=== PATIENT | female | born 1960 | race Caucasian/White ===

== ENCOUNTER 2024-02-23 06:18 | Day surgery (SDC) | payer OTHER ==
[~2024-02-23] VITALS: Ht 165.1 cm; Wt 95.9 kg
[~2024-02-23 06:18] MED LIST: ADULT LOW DOSE81 MG PO; CONTRAVE ER 8-1 EACH PO; DICLOFENAC SODI75 MG PO; DICYCLOMINE HCL20 MG PO; ESCITALOPRAM OX20 MG PO; IRON325 M1; MELATONIN5 M2; MELOXICAM7.5 MG PO; MIDAZOLAM HCL 5 MG/5 ML VIAL IV PRN; OMEPRAZOLE20 MG PO; PREMARIN30 GM PV; PROBIOTIC1 EAC2; TRIAMCINOLONE A15 G2 TOP; fentaNYL citrate 100 MCG/2 ML VIAL IV PRN
[2024-02-23 06:36] VITALS: BP 150/80
[2024-02-23] MEDS ORDERED: fentaNYL citrate 100 MCG/2 ML VIAL ONE (06:44)
[2024-02-23] MEDS ORDERED: MIDAZOLAM HCL 5 MG/5 ML VIAL ONE (06:44)
[2024-02-23] MEDS ORDERED: LIDOCAINE HCL 4% 50 ML BTL TOP SCH (07:00)
[2024-02-23] MEDS ORDERED: IBLOOD GLUCOSE TEST STRIP 1 EA TEST VI PRN (07:00)
[2024-02-23] MEDS ORDERED: CEFAZOLIN SODIUM 2 GM/20 ML SYR IV SCH (07:00)
[2024-02-23] MEDS ORDERED: LIDOCAINE HCL 1% 5 ML SDV INJ ONE (07:00)
[2024-02-23] MEDS ORDERED: LACTATED RINGER'S 1,000 ML IV SCH (07:00)
--- NOTE | 2024-02-23 07:24 | NUR ---
VISITED DURING SPIRITUAL CARE ROUNDS. PT APPEARED TO BE SLEEPING. DID NOT DISTURB. PROVIDED PRAYER.
--- NOTE | 2024-02-23 08:36 | NUR ---
02/23/24 0836 Vianey Barnes TO PACU, RESP EVEN UNLABORED. OCCASIONAL SNORING NOTED. FOLLOWS VERBAL DIRECTIONS
[2024-02-23 09:02] VITALS: BP 146/99
--- NOTE | 2024-02-23 12:25 | OR ---
[facility] [address] [place], [place] [address] Signed DATE OF OPERATION: 02/23/2024 SURGEON: Robert Liu MD PREOPERATIVE DIAGNOSES: 1. Episodic dysphagia and stated history of "gastric polyps.". 2. Episodic rectal bleeding, possible hemorrhoidal disease. POSTOPERATIVE DIAGNOSES: 1. Normal esophagus, stomach and duodenum. 2. Pandiverticulosis of colon. PROCEDURES: 1. Esophagogastroduodenoscopy with biopsy. 2. Total colonoscopy to cecum. ANESTHESIA: Intravenous sedation; fentanyl 200 mcg and Versed 10 mg total. INDICATION: This 63-year-old white woman is a patient DrMENDOZA Rod. She was referred for colonoscopy on the basis of "hemorrhoids and associated rectal bleeding. She additionally requested to have upper endoscopy as she was told by senior product designer she says in 2022 while in [place], [place] that she had polyps lining the stomach." She has no current symptoms of hematemesis though she does occasionally have dysphagia she says. She is having no diarrhea or constipation, but has had rectal bleeding in the recent past. She has no family history of colon cancer. Her last colonoscopy was in her 40s, more than 20 years ago. She is admitted at this time to undergo upper endoscopy concurrent to colonoscopy. She understands the risk of bleeding, infection, and perforation. FINDINGS: Upper endoscopy was entirely normal. The esophagus, stomach and duodenum were normal. The flap valve was good. There was no esophagitis. No Metz's epithelium. No gastric polyps that I could see and the duodenum appeared normal. On colonoscopy, the prep was excellent. Numerous diverticula were noted throughout the colon, most dominant in the sigmoid colon, but there was no sign of internal hemorrhoids, hemorrhoidal bleeding, colitis, polyps or cancer. Electronically Signed By: ROBERT LIU MD 02/23/24 1225 PATIENT NAME: SUNITHA CARDONA OPERATIVE REPORT DATE OF : 58 REPORT #: [id number] PHYSICIAN: ROBERT LIU MD PCP: GELACIO MILES PA-C REPORT IS CONFIDENTIAL AND NOT TO BE RELEASED WITHOUT AUTHORIZATION [facility] [address] [place], [place] [address] Signed PROCEDURE IN DETAIL: The patient was brought to the endoscopy suite and placed in the lateral decubitus position after undergoing topical lidocaine hypopharyngeal anesthesia. Intravenous sedation was given to the point of slurred speech and nystagmus. Full cardiopulmonary monitoring was maintained. A bite block was placed. An Olympus video upper endoscope was passed in the hypopharynx and easily passed into the esophagus. Vocal cords appeared normal. Scope was advanced throughout the esophagus and appeared normal. Scope was advanced to the stomach, which was insufflated with air. Rugal folds were normal. Antrum was generally normal, possibly mild minimal antral gastritis. The pylorus was normal and nondeformed. The scope was passed through into the duodenum, which was normal. Biopsies were taken of the duodenum to assess for occult celiac disease. The scope was withdrawn. Biopsies taken of the antrum for both RACHAEL and pathologic testing. Retroflexed view was undertaken showing a good flap valve. There were no gastric polyps to my visualization though the patient was somewhat active during the scope requiring additional sedation. The scope was straightened, withdrawn and the distal esophagus biopsied, though it appeared normal. The midesophagus was also normal as was the proximal esophagus. The scope was removed. Plans were then made for colonoscopy. Additional sedation was given. An Olympus video colonoscope was passed in the rectum after normal digital rectal exam. The scope was manipulated throughout the colon noting numerous diverticula most dense in the sigmoid colon. Ultimately, the cecum was obtained showing normal ileocecal valve and appendiceal orifice. The scope was carefully withdrawn from that point affirming numerous diverticula throughout the entire colon, most dominantly in the sigmoid and left colon. The rectum was normal. Retroflexed view showed no prominent hemorrhoidal disease at this time. The scope was removed and the patient was taken to recovery room in good condition. CONCLUDING DIAGNOSES: 1. Entirely normal upper endoscopy. No evidence of polyps or other abnormality. 2. Diverticulosis. PLAN: Recommend repeat colonoscopy in 10 years. Would recommend high-fiber diet. If she is benefitted from PPI medication for a dyspeptic cause, would recommend continued omeprazole, but if of no clinical benefit, would discontinue considering no finding of esophagitis or intense gastritis at this time. Robert Liu MD Electronically Signed By: ROBERT LIU MD 02/23/24 1225 PATIENT NAME: SUNITHA CARDONA OPERATIVE REPORT DATE OF : 58 REPORT #: [id number] PHYSICIAN: ROBERT LIU MD PCP: GELACIO MILES PA-C REPORT IS CONFIDENTIAL AND NOT TO BE RELEASED WITHOUT AUTHORIZATION [address] [address] Signed /[facility] /[id number] cc: Gelacio Miles Copies: ~ Electronically Signed By: ROBERT LIU MD 02/23/24 1225 PATIENT NAME: SUNITHA CARDONA OPERATIVE REPORT DATE OF : 58 REPORT #: [id number] PHYSICIAN: ROBERT LIU MD PCP: GELACIO MILES PA-C REPORT IS CONFIDENTIAL AND NOT TO BE RELEASED WITHOUT AUTHORIZATION
[2024-02-27] MEDS ORDERED: IRON240 MG PO (13:58)
--- NOTE | 2024-02-27 18:45 | PATH ---
[facility] [address] [place], [place] [address] Signed SPECIMEN(S): A DUODENAL BIOPSY SPECIMEN(S): B ANTRUM BIOPSY SPECIMEN(S): C LOWER ESOPHAGEAL BIOPSY SPECIMEN SOURCE: A. DUODENAL BIOPSY B. ANTRUM BIOPSY C. LOWER ESOPHAGEAL BIOPSY CLINICAL HISTORY: History of stomach polyp, diverticulosis, normal Egg(sp) FINAL PATHOLOGIC DIAGNOSIS: A. Duodenal biopsy: - Benign duodenal mucosa, negative for specific diagnostic abnormality. B. Antrum biopsy: - Benign gastric mucosa with focal slight chronic inflammation. - Negative for evidence of Helicobacter organisms on routine HE-stained sections. C. Lower esophageal biopsy: - Benign esophageal epithelium, negative for increased epithelial eosinophils. JVR:clv MICROSCOPIC EXAMINATION: Histologic sections of all submitted blocks are examined by light microscopy. These findings, together with the gross examination, support the pathologic diagnosis. GROSS DESCRIPTION: A. The specimen, labeled and designated "Xavier Pitts, 1." and designated on the requisition "duodenum biopsy," is received in formalin and consists of four ochoa soft tissue fragments that measure 0.2-0.3 cm in greatest dimension. The specimen is entirely submitted in (A1). B. The specimen, labeled and designated "Xavier Pitts, 2." and designated on the requisition "antrum/pylorus biopsy," is received in formalin and consists of two ochoa soft tissue fragments that measure 0.3 and 0.6 cm in greatest dimension. The specimen is entirely submitted in (B1). C. The specimen, labeled and designated "Xavier Pitts, 3. " and designated on the requisition "lower esophagus biopsy," is received in formalin and consists of one white-ochoa soft tissue fragment PATIENT NAME: SUNITHA PITTS PATHOLOGY DATE OF : 58 REPORT #: [id number] PHYSICIAN: SUZANNE HAND PCP: GELACIO LA PA-C REPORT IS CONFIDENTIAL AND NOT TO BE RELEASED WITHOUT AUTHORIZATION [facility] [address] [place] [place] [address] Signed that measures 0.5 cm in greatest dimension. The specimen is entirely submitted in (C1). FB (under the direct supervision of a pathologist) The Gross Description was prepared using a voice recognition system. The report was reviewed for accuracy; however, sound-alike word errors, addition and/or deletions may occur. If there is any question about this report, please contact Client Services. PERFORMING LABORATORY: Technical component was performed by [facility], [address] [place] [address] (CLIA# [id number]). Professional interpretation was performed by [facility], [address] [place] [id number] (CLIA#: [id number]). Diagnostician: Song Jacobson MD Pathologist Electronically Signed 02/27/2024 Copies: ~ PATIENT NAME: SUNITHA PITTS PATHOLOGY DATE OF : 58 REPORT #: [id number] PHYSICIAN: SZUANNE HAND PCP: GELACIO LA PA-C REPORT IS CONFIDENTIAL AND NOT TO BE RELEASED WITHOUT AUTHORIZATION
== END 2024-02-23 09:18 | disposition home or self-care (01) ==
LOC: OPS 06:18 → DS 06:18 → OPS 07:30 → DS 07:30 → OPS 09:18
PROVIDERS: ATTEND Surgery
PROC: 0DB68ZX Excision of Stomach, Via Natural or Artificial Opening Endoscopic, Diagnostic (ICD-10-PCS; 2024-02-23)
PROC: 0DJD8ZZ Inspection of Lower Intestinal Tract, Via Natural or Artificial Opening Endoscopic (ICD-10-PCS; principal; 2024-02-23 07:30)
PROC: 0DB38ZX Excision of Lower Esophagus, Via Natural or Artificial Opening Endoscopic, Diagnostic (ICD-10-PCS; 2024-02-23 07:30)
DX: K29.50 Unspecified chronic gastritis without bleeding (principal); K62.5 Hemorrhage of anus and rectum; K57.30 Diverticulosis of large intestine without perforation or abscess without bleeding; R13.19 Other dysphagia; E66.9 Obesity, unspecified; Z68.35 Body mass index [BMI] 35.0-35.9, adult
CPT/HCPCS: J0690; J2250; J3010

== ENCOUNTER 2024-02-28 06:58 | Day surgery (SDC) | payer OTHER ==
[2024-02-19 11:47] VITALS: BP 136/87
[~2024-02-28] VITALS: Ht 165.1 cm; Wt 99.1 kg
--- NOTE | ~2024-02-28 | OR ---
[facility] [address] [place], [place] [address] Draft DATE OF OPERATION: 02/28/2024 SURGEON: Nakia Shrestha MD PREOPERATIVE DIAGNOSES: 1. Vulvar leukoplakia. 2. Superficial dyspareunia. 3. Vaginal bleeding. POSTOPERATIVE DIAGNOSES: 1. Vulvar leukoplakia. 2. Superficial dyspareunia. 3. Vaginal bleeding. 4. Pending pathology. PROCEDURE: Superficial excision of vulvar lesion. ANESTHESIA: Saddle block with sedation. ESTIMATED BLOOD LOSS: Minimal. DRAINS: None. INDICATIONS AND FINDINGS: The patient is a 63-year-old female, who has been having ongoing problems with dyspareunia as well as vaginal bleeding. She has a white area on the perineum, which is the area involved with her pain. Perineal biopsy had been done, which was nonspecific. She is now here for re-excision of this area and to hopefully reduce the narrowing of the opening. DESCRIPTION OF PROCEDURE: The patient was prepped and draped in the dorsal lithotomy position. An ellipse of tissue was taken superficially at the introitus, excising the leukoplakic area completely. This allowed the introitus to be less narrowed. The incision itself was closed transversely with a running suture of 3-0 Vicryl after controlling bleeding in the PATIENT NAME: SUNITHA CARDONA OPERATIVE REPORT DATE OF : 58 REPORT #: [id number] PHYSICIAN: NAKIA SHRESTHA MD PCP: GELACIO LA PA-C REPORT IS CONFIDENTIAL AND NOT TO BE RELEASED WITHOUT AUTHORIZATION [address] [place] [address] Draft sub[address] space. All sponge and needle counts were correct. The patient tolerated the procedure well and was taken to the recovery room in good condition. MD SUSSY Suresh/ILIANA /[id number] Copies: ~ PATIENT NAME: SUNITHA CARDONA OPERATIVE REPORT DATE OF : 58 REPORT #: [id number] PHYSICIAN: NAKIA SHRESTHA MD PCP: GELACIO LA PA-C REPORT IS CONFIDENTIAL AND NOT TO BE RELEASED WITHOUT AUTHORIZATION
[~2024-02-28 06:58] MED LIST changes: +IRON240 MG PO; +LACTATED RINGER'S 1,000 ML IV SCH; -MIDAZOLAM HCL 5 MG/5 ML VIAL IV PRN; -fentaNYL citrate 100 MCG/2 ML VIAL IV PRN
[2024-02-28] MEDS ORDERED: FAMOTIDINE 20 MG/ 2 ML VIAL IV SCH (07:00)
[2024-02-28] MEDS ORDERED: LIDOCAINE HCL 1% 5 ML SDV INJ ONE (07:00)
[2024-02-28] MEDS ORDERED: IBLOOD GLUCOSE TEST STRIP 1 EA TEST VI PRN ×2 (07:00→11:15)
[2024-02-28 07:11] VITALS: BP 153/81
[2024-02-28] MEDS ORDERED: LIDOCAINE HCL 2% 5 ML SDV ONE ×2 (07:52→10:24)
[2024-02-28] MEDS ORDERED: propofoL 200 MG/20 ML VIAL ONE (07:52)
[2024-02-28] MEDS ORDERED: BUPIVACAINE 0.75% IN DEXTROSE 2 ML AMP ONE (07:53)
--- NOTE | 2024-02-28 09:04 | NUR ---
CHRISTOFER 0855: PT TURNS CULINARY INTERN LIGHT. SHE WOULD LIKE TO GET UP TO USE THE BATHROOM. SHE AMBUALTES HERSELF TO AND FROM. SHE IS GIVEN WARM BLANKETS AND ALL LIGHTS ARE TURNED OUT TO LET HER SLEEP AT HER REQUEST.
[2024-02-28] MEDS ORDERED: CEFAZOLIN SOD 1,000 MG/10 ML VIAL ONE (10:17)
[2024-02-28] MEDS ORDERED: LIDOCAINE 1% W/ EPI 1:200,000 30 ML SDV ONE (10:17)
[2024-02-28] MEDS ORDERED: ondansetron HCL 4 MG/2 ML VIAL ONE (10:43)
[2024-02-28] MEDS ORDERED: ACETAMINOPHEN 1,000 MG/100 ML VIAL ONE (10:43)
[2024-02-28] MEDS ORDERED: KETOROLAC TROMETHAMINE 30 MG/ML VIAL ONE (10:43)
--- NOTE | 2024-02-28 11:10 | NUR ---
02/28/24 1110 Zaida Linder 1101 PT TO PACU AWAKE AND ALERT DENIES PAIN AND NAUSEA. 1105 PT TAKING SIPS OF WATER TOLERATES WELL.
[2024-02-28] MEDS ORDERED: NALOXONE HCL 0.4 MG SYR IV PRN ×2 (11:15)
[2024-02-28] MEDS ORDERED: TRAMADOL HCL 50 MG TAB PO PRN (11:15)
[2024-02-28] MEDS ORDERED: MAGNESIUM HYDROXIDE/AL HYDROX 30 ML CUP PO PRN (11:15)
[2024-02-28] MEDS ORDERED: ondansetron HCL 4 MG/2 ML VIAL IV PRN (11:15)
[2024-02-28] MEDS ORDERED: LACTATED RINGER'S 1,000 ML IV SCH (11:15)
[2024-02-28] MEDS ORDERED: METOCLOPRAMIDE HCL 10 MG/2 ML SDV IV PRN (11:15)
[2024-02-28] MEDS ORDERED: PROCHLORPERAZINE EDISYLATE 10 MG/2 ML VIAL IV PRN (11:15)
[2024-02-28] MEDS ORDERED: ondansetron HCL 4 MG TAB PO PRN (11:15)
[2024-02-28] MEDS ORDERED: FAMOTIDINE 20 MG TAB PO PRN (11:15)
[2024-02-28] MEDS ORDERED: fentaNYL citrate 50 MCG/ML SDV IV PRN (11:15)
[2024-02-28] MEDS ORDERED: MORPHINE SULFATE 10 MG/ML VIAL IV PRN (11:15)
[2024-02-28 11:29] VITALS: BP 134/83
[2024-02-28] MEDS ORDERED: IBUPROFEN 800 MG TAB PO SCH (14:00)
--- NOTE | 2024-03-04 13:52 | PATH ---
[facility] [address] [facility] [place], [place] [address] Signed SPECIMEN(S): A VULVAR LEUKOPLAKIA SPECIMEN SOURCE: A. VULVAR LEUKOPLAKIA CLINICAL HISTORY: Vulvar leukoplakia, superficial dyspareunia FINAL PATHOLOGIC DIAGNOSIS: Vulvar leukoplakia, biopsy: - Squamous epithelium with area of acute inflammation and abscess formation. - Negative for dysplasia or malignancy NA MICROSCOPIC EXAMINATION: Histologic sections of all submitted blocks are examined by light microscopy. These findings, together with the gross examination, support the pathologic diagnosis. Special stain for T palladium is performed (with valid control), and it is negative for organisms. GROSS DESCRIPTION: The specimen, labeled and designated "Delfino Pitts, per requisition vulvar leukoplakia," is received in formalin and consists of a single ochoa-brown tissue fragment that is 0.8 x 0.5 x 0.3 cm in greatest dimension. The specimen is entirely submitted in cassette A1. AA (under the direct supervision of a pathologist) The Gross Description was prepared using a voice recognition system. The report was reviewed for accuracy; however, sound-alike word errors, addition and/or deletions may occur. If there is any question about this report, please contact Client Services. ADDITIONAL NOTES: Immunohistochemical and/or in situ hybridization studies if performed in this case included appropriate positive controls that reacted as expected. This test was developed and its performance characteristics determined by [facility]. It has not been cleared or approved by the U.S. Food and Drug Administration. The FDA has determined that such clearance or approval is not necessary. This test is used for clinical purposes. It should not be regarded as investigational or for research. [facility] is certified under the PATIENT NAME: SUNITHA PITTS PATHOLOGY DATE OF : 58 REPORT #: [id number] PHYSICIAN: SUZANNE PATHOLOGY PCP: GELACIO LA PA-C REPORT IS CONFIDENTIAL AND NOT TO BE RELEASED WITHOUT AUTHORIZATION [address] [place] [address] Signed Clinical Laboratory Improvement Amendments of 1988 (CLIA) as qualified to perform high complexity clinical laboratory testing. PERFORMING LABORATORY: Technical component was performed by [facility], [address] [place] [address] (CLIA# [id number]). Professional interpretation was performed by [facility], [address] [place] [address] (CLIA#: [id number]). Diagnostician: Hugo Wynne MD Pathologist Electronically Signed 03/04/2024 Copies: ~ PATIENT NAME: SUNITHA PITTS PATHOLOGY DATE OF : 58 REPORT #: [id number] PHYSICIAN: SUZANNE HAND PCP: GELACIO LA PA-C REPORT IS CONFIDENTIAL AND NOT TO BE RELEASED WITHOUT AUTHORIZATION
== END 2024-02-28 11:39 | disposition home or self-care (01) ==
LOC: OPS 06:58 → DS 06:58 → OPS 10:30
PROVIDERS: ATTEND Obstetrics & Gynecology
PROC: 0HB9XZZ Excision of Perineum Skin, External Approach (ICD-10-PCS; principal; 2024-02-28 10:30)
DX: N90.4 Leukoplakia of vulva (principal); N94.10 Unspecified dyspareunia; N93.9 Abnormal uterine and vaginal bleeding, unspecified; K21.9 Gastro-esophageal reflux disease without esophagitis; E78.5 Hyperlipidemia, unspecified; F33.1 Major depressive disorder, recurrent, moderate; G47.33 Obstructive sleep apnea (adult) (pediatric); Z79.82 Long term (current) use of aspirin; Z79.899 Other long term (current) drug therapy; Z88.2 Allergy status to sulfonamides; Z88.8 Allergy status to other drugs, medicaments and biological substances
CPT/HCPCS: 00940; J0131; J0690; J1885; J2003; J2405; J2704; J7121

== ENCOUNTER 2024-08-16 10:47 | Day surgery (SDC) | payer OTHER ==
[2024-08-08 09:40] VITALS: BP 133/87
[~2024-08-16] VITALS: Ht 165.1 cm; Wt 104.5 kg
[~2024-08-16 10:47] MED LIST changes: +CEFAZOLIN SODIUM 2 GM/20 ML SYR IV SCH; +IBLOOD GLUCOSE TEST STRIP 1 EA TEST VI PRN; +LIDOCAINE HCL 1% 5 ML SDV INJ ONE; -MELATONIN5 M2; +MELATONIN5 M2 PO; -PROBIOTIC1 EAC2; +PROBIOTIC1 EAC2 PO
[2024-08-16 11:01] VITALS: BP 157/93
[2024-08-16] MEDS ORDERED: fentaNYL citrate 100 MCG/2 ML VIAL ONE (13:23)
[2024-08-16] MEDS ORDERED: BUPIVACAINE 0.75% IN DEXTROSE 2 ML AMP ONE (13:23)
[2024-08-16] MEDS ORDERED: LIDOCAINE HCL 2% 5 ML SDV ONE (13:23)
[2024-08-16] MEDS ORDERED: propofoL 200 MG/20 ML VIAL ONE (13:23)
[2024-08-16] MEDS ORDERED: ondansetron HCL 4 MG/2 ML VIAL ONE (14:07)
[2024-08-16] MEDS ORDERED: PROCHLORPERAZINE EDISYLATE 10 MG/2 ML VIAL IV PRN (14:30)
[2024-08-16] MEDS ORDERED: IBLOOD GLUCOSE TEST STRIP 1 EA TEST VI PRN (14:30)
[2024-08-16] MEDS ORDERED: droPERidol 5 MG/2 ML VIAL IV PRN (14:30)
[2024-08-16] MEDS ORDERED: ondansetron HCL 4 MG/2 ML VIAL IV PRN (14:30)
[2024-08-16] MEDS ORDERED: HYDROmorphone HCL 1 MG/ML SYR IV PRN (14:30)
[2024-08-16] MEDS ORDERED: fentaNYL citrate 50 MCG/ML SDV IV PRN (14:30)
[2024-08-16] MEDS ORDERED: NALOXONE HCL 0.4 MG SYR IV PRN ×2 (14:30→15:00)
[2024-08-16] MEDS ORDERED: PSYLLIUM SEED 1 PKT PACKET PO SCH (14:50)
[2024-08-16] MEDS ORDERED: ACETAMINOPHEN500 MG PO (14:55)
[2024-08-16] MEDS ORDERED: IBUPROFEN600 MG PO (14:55)
[2024-08-16] MEDS ORDERED: OXYCODON-ACETA1 EAC2 PO (14:55)
[2024-08-16] MEDS ORDERED: METAMUCIL PACK3.4 GM PO (14:55)
[2024-08-16] MEDS ORDERED: NITROGLYCERIN TOP (14:59)
[2024-08-16] MEDS ORDERED: IBUPROFEN 600 MG TAB PO PRN (15:00)
[2024-08-16] MEDS ORDERED: PETROLATUM MISC (15:00)
[2024-08-16] MEDS ORDERED: LACTATED RINGER'S 1,000 ML IV SCH (15:00)
[2024-08-16] MEDS ORDERED: ACETAMINOPHEN 500 MG TAB PO PRN (15:00)
[2024-08-16] MEDS ORDERED: OXYCODONE/APAP 7.5/325 TAB PO PRN (15:00)
[2024-08-16 15:10] VITALS: BP 125/63
--- NOTE | 2024-08-16 15:10 | NUR ---
PT ARRIVED BACK TO DROWSY, ON RA, AND LAYING ON RIGHT SIDE. PTS IN ROOM UPON HER ARRIVAL. REPORT RECEIVED FROM ORE MIXER. VISUALIZED SURGICAL SITE. PT WITH MAI-PAD AND MESH PANTIES IN PLACE. SMALL AMT OF BLEEDING NOTED ON MAI-PAD. PT DENIES PAIN OR NAUSEA WHEN ASKS. PT REPORTS PERINEUM AREA REMAINS "NUMB AND HEAVY FEELING". VS TAKEN. IV SITE ASSESSED. IV IS SL'D CURRENTLY. PT PROVIDED WITH ICE WATER, ISAC CRACKERS, AND PUDDING. PT ASSISTED WITH ROLLING TO HER BACK AND HOB ELEVATED TO APPROX 45 DEGREES TO FACILITATE EATING AND DRINKING. BED IN LOW POSITION, WHEELS LOCKED, BILAT RAILS IN PLACE, AND CALL LIGHT WTIHIN PT REACH. ALL QUESTIONS ANSWERED.
--- NOTE | 2024-08-16 15:15 | NUR ---
08/16/24 1515 Tanya Rome 1441- PT PRESENTS TO PACU, SEMI YOUNG POSITION. REACTIVE TO STIMULUS. BREATHING EVEN AND NON LABORED, O2 AT 6L PER MASK. REORIENTED TO TIME AND PLACE. LR INFUSING TO RH IV. ABD SOFT, NON DISTENDED. ALL MONITORS IN PLACE. 1450- PT WAKES EASILY TO VERBAL STIMULI, FALLS BACK TO SLEEP. DENIES PAIN AND NAUSEA. MOVED TO ROOM AIR AT THIS TIME. 1500- DR LIU TO BEDSIDE, PROCEDURE FINDINGS AND INSTRUCTIONS EXPLAINED. PT VERBALIZES UNDERSTANDING BUT VERY DROWSY. PT ABLE TO ROLL SELF ONTO RIGHT SIDE, SMALL AMOUNT OF BLEEDING NOTED, MAI PAD IN PLACE. PT HAS EQUAL STRENGTH IN BLE, BUT PERINEUM FEELS VERY NUMB. 1510- PT TAKEN BACK TO DAY SURGERY, AT BEDSIDE. REPORT TO CARLOS PARRA AT BEDSIDE, SALINE LOCK IN PLACE. CARE OF PT TURNED OVER AT HTIS TIME.
--- NOTE | 2024-08-16 15:55 | NUR ---
1535-PT REPORTING INCREASED PAIN AFTER SITTING UP TO EAT. MPT RATINGPAIN AT 4/10 IN RECTAL AREA AND REQUESTING PAIN MEDICATION. 1537-PO PAIN MEDS GIVEN PER PT REQUEST.1540-PT REQUESTING TO USE RESTROOM REPORTING URGE TO VOID. PT ASSISTED TO SITTING ON EOB AND THEN STANDING POSITION. PT ABLE TO AMBULATTE TO RESTROOM 1 RN ASSISTANCE FOR STABILITY AND SAFETY. 1545-PT PROVIDED WITH NEW MESH PANTIES AND PERIPAD. PT REPORTS INABILITY TO VOID, BUT REQUESTS TO TRY A LITTLE LONGER. PT HAS ATTEMPTED TO LEAN FORWARD AND APPLY PRESSURE TO PELVIC AREA TO HELP WITH VOIDING AND WITHOUT SUCCESS, 1555-PT ASSISTED BACK TO ROOM AND INTO BED. PT GIVEN ORDERED METAMUCIL DOSE. REMAINS IN ROOM WITH PT AT BEDSIDE. CALL LIGHT WITHIN PT REACH.
[2024-08-16 16:10] VITALS: BP 140/86
--- NOTE | 2024-08-16 17:01 | NUR ---
1610-ROUTINE REASSESSMENT COMPLETED. VS TAKEN. IV SITE ASSESSED. PTS REMAINS AT BEDSIDE. PT DENIES NAUSEA WHEN ASKED. PT REPORTS PAIN 4/10. PT TAKING PO FLUIDS AND FOOD WELL. PT AAOX3, ANSWERS QUESTIONS APPROPRIATELY, AND IS ABLE TO MAKE HER NEEDS KNOWN. PERIPAD WITH SCANT AMTS OF SANGUINOUS DRAINAGE NOTED. ICE WATER REFILLED. 1615-PT REQUESTING TO USE RESTROOM AGAIN. PT ASSISTED TO RESTROOM FOR SAFETY. PT ABLE TO VOID AND NOTED TO HAVE SMALL SOFT BM. PT MISSED HAT, HOWEVER URINE APPEARS CLR YELLOW AND QUANTITY SUFFICIENT. SMALL AMT OF BLOOD MIXED WITH STOOL. NO LARGE CLOTS. PT ASSISTED BACK TO ROOM AND SURGICAL SITE OBSERVED. NO ISSUES NOTED. AREA IS CLEAN. PT PROVIDED NEW MAI PAD AND MESH PANTIES. PT REPORTS PAIN REMAINS 4/10 AND REQUESTING ADDITIONAL PAIN MEDS. PT OFFERED IBU AND IS WILLING TO TAKE. 1623-600MG IBU GIVEN PO PER EMAR. AT PTS BEDSIDE WITH PERSONAL BELONINGS AND ASSISTING PT WITH GETTING DRESSED FOR DISCHARGE. CALL LIGHT WITHIN PT REACH.
--- NOTE | 2024-08-16 17:12 | NUR ---
1655 IV REMOVED FOR DISCHARGE. DISCHARGE INFORMATION GONE OVER WITH PT AND SPOUSE. NO QUESTIONS AT THIS TIME. 1705 PT DISCHARGED FROM DAY SURGERY VIA WHEELCHAIR. PT HAS PRESCRIPTION AND DISCHARGE INSTRUCTIONS IN HAND. PT WHEELED TO THE FRONT OF THE HOSPITAL TO PT'S SPOUSE'S CAR.
--- NOTE | 2024-08-17 12:34 | OR ---
[facility] [address] [place], [place] [address] Signed DATE OF OPERATION: 08/16/2024 SURGEON: Robert Liu MD PREOPERATIVE DIAGNOSIS: Extensive internal and external hemorrhoidal disease (symptomatic). POSTOPERATIVE DIAGNOSIS: Extensive internal and external hemorrhoidal disease (symptomatic). PROCEDURE: Hemorrhoidectomy x3, internal and external. ANESTHESIA: Spinal with IV sedation, Jasmeet Killian CRNA and local 10 mL of 0.25% Marcaine with epinephrine. INDICATION: This 64-year-old woman is a patient of MENDOZA Nielson. She underwent colonoscopy by me in February of 2024. She had extensive external hemorrhoidal disease and some internal hemorrhoids as well. She has complaints about her hemorrhoids mostly related to difficult hygiene issues. She has had some pain, but no thrombosis proper. She is here to undergo hemorrhoidectomy for both internal and external hemorrhoidal disease. She understands the risk of bleeding and infection, variable degrees of incontinence (unlikely), recurrent hemorrhoid disease and other unforeseen complications. FINDINGS: Extensive hemorrhoidal changes were noted externally and of course internal extension noted as well. Hemorrhoidectomy was undertaken x3 in the classic positions in the left lateral, right posterior and right anterior sides. She tolerated the procedure well. DESCRIPTION OF PROCEDURE: The patient was brought to the operating room after undergoing saddle block anesthesia and placed in the prone eugene-knife position. She was given intravenous sedation. Preoperative antibiotics had been given as a bowel prep as well. The buttocks were taped apart. The external and internal hemorrhoidal components examined. The area was prepared with a Betadine based solution and draped sterilely. Two finger anal dilation was undertaken and anal retractor was placed. The most dominant hemorrhoidal problem was on the left lateral aspect. A Boudreaux clamp was applied to the external portion of the hemorrhoid and the root of the hemorrhoid above the dentate line was secured with Electronically Signed By: ROBERT LIU MD 08/17/24 1234 PATIENT NAME: SUNITHA CARDONA OPERATIVE REPORT DATE OF : 58 REPORT #: [id number] PHYSICIAN: ROBERT LIU MD PCP: GELACIO LA PA-C REPORT IS CONFIDENTIAL AND NOT TO BE RELEASED WITHOUT AUTHORIZATION [facility] [address] [place], [place] [address] Signed a 2-0 chromic suture on a UR needle. Using electrocautery, external to internal dissection was undertaken of the redundant skin and underlying hemorrhoidal vessels down to the origin of the hemorrhoid. This area was doubly secured with the chromic. The hemorrhoid amputated and passed for pathology. The mucosal defect was then reapproximated with the chromic in a running configuration, leaving an external portion to drain as appropriate. This was repeated in the right posterior and right anterior aspects providing two additional specimens. By conclusion, good sphincter tone was preserved. Good hemostasis noted and she tolerated it well. 10 mL of 0.25% Marcaine with epinephrine was injected locally. A peripad was applied. The patient was ultimately taken to recovery room in good condition having suffered no complication. Sponge, needle, and instrument counts reported as correct x3. Blood loss was less than 25 mL. Robert Liu MD JM/[facility] /[id number] cc: MENDOZA Nielson Copies: ~ Electronically Signed By: ROBERT LIU MD 08/17/24 1234 PATIENT NAME: SUNITHA CARDONA OPERATIVE REPORT DATE OF : 58 REPORT #: [id number] PHYSICIAN: ROBERT LIU MD PCP: GELACIO LA PA-C REPORT IS CONFIDENTIAL AND NOT TO BE RELEASED WITHOUT AUTHORIZATION
--- NOTE | 2024-08-20 15:27 | PATH ---
[facility] [address] [place], [place] [address] Signed SPECIMEN(S): A LEFT LATERAL HEMORRHOIDAL COMPLEX SPECIMEN(S): B RIGHT POSTERIOR HEMORRHOIDAL COMPLEX SPECIMEN(S): C RIGHT ANTERIOR HEMORRHOIDAL COMPLEX SPECIMEN SOURCE: A. LEFT LATERAL HEMORRHOIDAL COMPLEX B. RIGHT POSTERIOR HEMORRHOIDAL COMPLEX C. RIGHT ANTERIOR HEMORRHOIDAL COMPLEX CLINICAL HISTORY: Internal/external hemorrhoids. FINAL PATHOLOGIC DIAGNOSIS: A. Left lateral hemorrhoidal complex: - Polypoid anal-type mucosa with dilated hemorrhoidal vasculature. B. Right posterior hemorrhoidal complex: - Polypoid anal-type mucosa with dilated hemorrhoidal vasculature. C. Right anterior hemorrhoidal complex: - Polypoid anal-type mucosa with dilated hemorrhoidal vasculature. JVR:clv MICROSCOPIC EXAMINATION: Histologic sections of all submitted blocks are examined by light microscopy. These findings, together with the gross examination, support the pathologic diagnosis. GROSS DESCRIPTION: A. The specimen, labeled and designated "Xavier Pitts, " and designated on the requisition "left lateral hemorrhoid complex," is received in formalin and consists of 2.6 x 2.5 x 1.5 cm triangular portion of soft tissue that is partially surfaced by a segura-white wrinkled skin. Specimen is inked and sectioned revealing dilated blood-filled vessels. Tassel Snipper sections are submitted in (A1). B. The specimen, labeled and designated "Xavier Pitts, " and designated on the requisition "right posterior hemorrhoidal complex," is received in formalin and consists of 2.5 x 2.4 x 1.2 cm triangular portion of rubbery tissue that is partially surfaced by segura-brown wrinkled skin. The specimen is inked and sectioned revealing multiple dilated blood-filled vessels. Tassel Snipper sections are submitted in (B1). PATIENT NAME: SUNITHA PITTS PATHOLOGY DATE OF : 58 REPORT #: [id number] PHYSICIAN: SUZANNE HAND PCP: GELACIO LA PA-C REPORT IS CONFIDENTIAL AND NOT TO BE RELEASED WITHOUT AUTHORIZATION [facility] [address] [place], [place] [address] Signed C. The specimen, labeled and designated "Xavier Pitts, " and designated on the requisition "right anterior hemorrhoid complex," is received in formalin and consists of 1.8 x 1.6 x 0.6 cm polypoid portion of skin. The surface is segura-brown and wrinkled. The specimen is inked, sectioned, and entirely submitted in (C1). FB (under the direct supervision of a pathologist) The Gross Description was prepared using a voice recognition system. The report was reviewed for accuracy; however, sound-alike word errors, addition and/or deletions may occur. If there is any question about this report, please contact Client Services. PERFORMING LABORATORY: Technical component was performed by [facility], [address] [place] [id number] (CLIA# [id number]). Professional interpretation was performed by [facility], [address] [place] [phone] (CLIA#: [id number]). Diagnostician: Song Jacobson MD Pathologist Electronically Signed 08/20/2024 Copies: ~ PATIENT NAME: SUNITHA PITTS PATHOLOGY DATE OF : 58 REPORT #: [id number] PHYSICIAN: SUZANNE PATHOLOGY PCP: GELACIO LA PA-C REPORT IS CONFIDENTIAL AND NOT TO BE RELEASED WITHOUT AUTHORIZATION
== END 2024-08-16 17:05 | disposition home or self-care (01) ==
LOC: DS 10:47
PROVIDERS: ATTEND Surgery
PROC: 06BY0ZC Excision of Hemorrhoidal Plexus, Open Approach (ICD-10-PCS; principal; 2024-08-16 13:30)
DX: K64.8 Other hemorrhoids (principal); K64.4 Residual hemorrhoidal skin tags; Z90.711 Acquired absence of uterus with remaining cervical stump; Z96.651 Presence of right artificial knee joint; Z88.2 Allergy status to sulfonamides; Z79.899 Other long term (current) drug therapy
CPT/HCPCS: 00902; A9270; J0690; J2003; J2405; J2704; J3010; J7121